=== PATIENT | male | born 1930 | race Caucasian/White ===

== ENCOUNTER 2017-01-15 19:47 | Emergency (ER) | payer MEDICARE, BC ==
--- OUTSIDE RECORDS SUMMARY | 2017-01-15 20:20 | XMS REPORT | Continuity of Care Document ---
:1930 Author Organization [employer] [place] [address] Care Team Providers Name Role Phone Unavailable Primary Care Provider Unavailable Source Comments This disclosure is being made pursuant to the CAPPTURE program and maynot contain all information available regarding this patient.[place] Active Allergies and Adverse Reactions Allergen Noted Date Severity Reactions Comments Adhesive Tape 03/30/2016 Low Rash Pcn 03/30/2016 Low Itching,Rash Sulfa Antibiotics 03/30/2016 Other (See Comments) Unknown reaction Current Medications Be aware that medications may not be up to date as of this document. Alwaysverify current medications with the patient. Prescription Sig. Disp. Refills Start Date End Date Status furosemide (LASIX) 20 MG Take 20 mg by Active tablet mouth daily. aspirin 81 MG tablet Take 81 mg by Active mouth daily. atenolol (TENORMIN) 25 Take 25 mg by Active MG tablet mouth daily. clopidogrel (PLAVIX) 75 Take 75 mg by Active MG tablet mouth daily. tamsulosin HCl (FLOMAX) Take 0.8 mg by Active 0.4 MG capsule mouth daily. vitamin D Take 1,000 Units Active (CHOLECALCIFEROL) 1000 by mouth daily. UNITS tablet acetaminophen (TYLENOL) Take 975 mg by Active 325 MG tablet mouth 3 (three) times daily. Cyanocobalamin (B-12) Take by mouth Active 1000 MCG CAPS every afternoon. ferrous sulfate 325 (65 Take 325 mg by Active FE) MG TABS tablet mouth every afternoon. DULoxetine (CYMBALTA) 60 Take 60 mg by Active MG capsule mouth every afternoon. atorvastatin (LIPITOR) Take 40 mg by Active 40 MG tablet mouth every evening. oxybutynin (DITROPAN) 5 Take 5 mg by Active MG tablet mouth every evening. nitroGLYCERIN Place 0.4 mg Active (NITROSTAT) 0.4 MG SL under the tongue tablet every 5 (five) minutes as needed for Chest pain. fluticasone (FLONASE) 50 2 sprays by Active MCG/ACT nasal spray Nasal route as needed for Rhinitis. to each nostril carbamide peroxide Place 2 drops Active (DEBROX) 6.5 % otic into both ears solution as needed. Menthol, Topical Apply Active Analgesic, (BIOFREEZE topically. EX) Multiple Take by mouth 2 Active Vitamins-Minerals (two) times (ICAPS) CAPS daily. HYDROcodone-acetaminophe Take 1 tablet by 30 tablet 0 04/13/2016 Active n (NORCO) 5-325 MG per mouth every 4 tablet (four) hours as needed. Active Problems Problem Noted Date Abdominal aortic aneurysm, without rupture (HCC) 04/12/2016 Iliac artery aneurysm, bilateral (HCC) 04/12/2016 Social History Tobacco Use Types Packs/Day Years Used Date Never Smoker Alcohol Use Drinks/Week oz/Week Comments Yes occasionally Last Filed Vital Signs Vital Sign Reading Time Taken Blood Pressure 112/56 04/13/2016 2:58 PM CDT Pulse 62 04/13/2016 2:58 PM CDT Temperature 36.8 C (98.2 F) 04/13/2016 2:58 PM CDT Respiratory Rate 16 04/13/2016 2:58 PM CDT Height 1.778 m (5' 10") 04/12/2016 9:00 AM CDT Weight 101.061 kg (222 lb 12.8 oz) 04/12/2016 9:00 AM CDT Body Mass Index 31.97 04/12/2016 9:00 AM CDT Oxygen Saturation 92% 04/13/2016 2:58 PM CDT Plan of Care Health Maintenance Due Date Last Done Comments Tetanus/Pertussis (1 - Tdap) 1950 Well Adult Visit 1981 Zoster Vaccine 60+ 1991 Pneumococcal Low/Medium Risk 65+ (1 of 2 - PCV13) 1996 Influenza Immunization (#1) 2016 Results from Last 3 Months Not on file Insurance Payer Benefit Plan / Group Subscriber ID Type Phone Address [employer] [place] [place] [id number] [phone] [id number] [place] [address] MEDICARE MEDICARE A AND B [id number] [phone] [address] [place] [address]
[2017-01-15] MEDS ORDERED: DOXYCYCLINE HYCLATE 100 MG TABLET PO ONE (20:25)
--- NOTE | 2017-01-15 20:25 | ERNOTE ---
Integumentary HPI - General Time Seen by Provider: 01/15/17 20:09 Source: patient, family - he is also obtained by the patient's spouse in the room who is very well informed and has excellent records Exam Limitations: no limitations - Immun/Allergies/Home Medications Immunizations: IMMUNIZATION HX Immunizations Up to Date Yes History of Influenza Vaccine Yes Hx Pneumococcal Vaccination Yes Allergies/Adverse Reactions: Allergies Allergy/AdvReac Type Severity Reaction Status Date / Time Penicillins Allergy Verified 01/15/17 19:58 Sulfa (Sulfonamide Allergy Verified 01/15/17 19:58 Antibiotics) Home Medications: HOME MEDICATIONS Atenolol [Tenormin] 25 mg PO DAILY 05/25/15 [Last Taken Unknown] Fluticasone Propionate [Flonase] 2 spray NS DAILY 05/25/15 [Last Taken Unknown] Nitroglycerin [Nitrostat] 0.4 mg SL Q5MIN PRN 05/25/15 [Last Taken Unknown] Acetaminophen [Tylenol] 3 tab PO TID 10/05/15 [Last Taken Unknown] Atorvastatin Calcium 40 mg PO ONCE 10/05/15 [Last Taken Unknown] Carbamide Peroxide [Ear Drops] 2 drop OT PRN 10/05/15 [Last Taken Unknown] Duloxetine HCl [Cymbalta] 60 mg PO DAILY 10/05/15 [Last Taken Unknown] Ferrous Sulfate 65 mg PO DAILY 10/05/15 [Last Taken Unknown] Menthol [Biofreeze] 1 appl TP BID PRN 10/05/15 [Last Taken Unknown] Tamsulosin HCl [Flomax] 2 tab PO HS 10/05/15 [Last Taken Unknown] Clopidogrel Bisulfate [Plavix] 75 mg PO DAILY #30 tablet 10/06/15 [Last Taken Unknown] Aspirin 81 mg PO DAILY 01/15/17 [Last Taken Unknown] Cholecalciferol (Vitamin D3) [Vitamin D3] 1,000 unit PO DAILY 01/15/17 [Last Taken Unknown] Cyanocobalamin (Vitamin B-12) [Vitamin B-12] 500 mcg PO DAILY 01/15/17 [Last Taken Unknown] Doxycycline Monohydrate 100 mg PO BID #20 tablet 01/15/17 [Last Taken Unknown] - History of Present Illness Narrative: This patient presents to the emergency room 24 hours after the attempted to take blood out of his right before meals area via phlebotomy. The area is red and warm and patient has a history of cellulitis in the past and he comes in for this issue. Review of Systems - Review of Systems Constitutional: Present: no symptoms reported EYE: Present: no symptoms reported ENT: Present: no symptoms reported Respiratory: Present: no symptoms reported Cardiology: Present: no symptoms reported Gastrointestinal/Abdominal: Present: no symptoms reported Genitourinary: Present: no symptoms reported Musculoskeletal: Present: no symptoms reported Skin: Present: See HPI - Patient's Past Medical History Patient History - Medical: Arthritis, GERD, Other Patient History - Cardiac/Respiratory: CVA/Stroke, Hypertension, Hyperlipidemia , Myocardial Infarction Patient History - Cancer: No Hx of Cancer Patient History - Surgical Procedures: Appendectomy, Back Surgery, Cataracts, Coronary Bypass Surgery, Cardiac stent, Other Patient History - Other: None - Family History Father Family History - Medical: Family History - Cardiac/Respiratory: Myocardial Infarction Mother Family History - Medical: , Dementia - Social History Living Situations: home Abuse History: No History of abuse Psych History: No pertinent hx Alcohol Use: none Drug Use: none - Immunizations Immunizations Up to Date: Yes Hx Pneumococcal Vaccination: Yes History of Influenza Vaccine: Yes Physical Exam - Physical Exam General Appearance: Present: wd/wn, alert, no apparent distress Head Exam: Present: normal inspection Respiratory: Present: no respiratory distress, normal breath sounds, no accessory muscle use, chest nontender, lungs clear Cardiovascular/Chest: Present: regular rate, rhythm, no murmur Gastrointestinal/Abdominal: Present: normal bowel sounds, nontender, nondistended, soft, no organomegaly Skin Exam: Present: other - there is an area which is circular on the right antecubital region which is read slightly raised warm to the touch and slightly tender no puncture wound is seen the area is approximately 12 cm in greater diameter ED Progress - Vital Signs Patient's Vital Signs:: I have reviewed the patient's vital signs. Vital Signs: Vital Signs 01/15/17 19:52 Temperature 36.4 C L Pulse Rate 68 Respiratory 18 Rate Blood Pressure 140/71 O2 Sat by Pulse 93 Oximetry - Progress/Reassessment Chief Complaint: Cellulitis Plan - Plan Plan: This patient clearly has a cellulitis as he has been the past. He we will treat him with doxycycline 100 mg by mouth twice a day for 10 days and have him follow-up with his primary care doctor Departure Clinical Impression: Cellulitis of forearm, right - Departure Disposition: Home self-care Condition: Good Instructions: Cellulitis, Adult, [id number] Additional Instructions: These go see Dr. Tyson if the redness is outside of the delineated area in 2 days. You could always return to the emergency room as well Referrals: Nathaniel Tyson MD [Primary Care Provider] - Prescriptions: Doxycycline Monohydrate 100 mg PO BID #20 tablet
[2017-01-15 20:31] VITALS: BP 134/65
[2017-01-15] MEDS ORDERED: DOXYCYCLINE HYCLATE 100 MG TABLET ONE (20:34)
== END 2017-01-15 20:40 | disposition home or self-care (01) ==
LOC: ER 19:47
DX: L03.113 Cellulitis of right upper limb (principal); I10 Essential (primary) hypertension; Z95.5 Presence of coronary angioplasty implant and graft

== ENCOUNTER 2020-07-18 13:50 | Inpatient (IN) ==
[2020-07-18] MEDS ORDERED: NORMAL SALINE 1,000 ML IV ONE (14:20)
[2020-07-18 14:55] LABS: Hematocrit 41.2 % (42.0-52.0); Hemoglobin 13.6 gm/dL (13.5-18.0); Mean Corpuscular Hemoglobin 35.3 pg (27-31); Mean Platelet Volume 9.2 fl (8-11.3); Neutrophil # 4.7 K/mm3 (1.3-6.0); Neutrophil % 80.4 % (42-75.0); Platelet Count 192 K/mm3 (150-450); Red Blood Count 3.85 M/mm3 (4.7-6.0); Red Cell Distribution Width 12.9 % (11.5-14.0); White Blood Count 5.9 K/mm3 (4.0-10.5)
[2020-07-18 15:11] LABS: ALT 13 U/L (19-67); AST 17 U/L (0-48); Albumin * 3.4 gm/dl (3.4-5.0); Alkaline Phosphatase * 81 U/L (50-170); Bilirubin, Total 0.3 mg/dL (0.0-1.1); Blood Urea Nitrogen 22 mg/dL (6-23); Ca. Corrected For Albumin 8.9 mg/dL (8.4-10.2); Calcium * 8.7 mg/dL (7.9-10.9); Carbon Dioxide 27.4 mmol/L (24-32.6); Chloride 105 mmol/L (97-106); Glucose * 103 mg/dL (70-110); Potassium 4.4 mmol/L (3.4-4.6); Sodium 141 mmol/L (132-142); Total Protein 6.8 gm/dL (6.2-8.2)
[2020-07-18 15:12] LABS: Troponin I Less than 0.017 ng/mL (0.00-0.10)
[2020-07-18 16:28] LABS: Urine Bilirubin Negative (NEGATIVE); Urine Blood Negative /ul (NEGATIVE); Urine Ketone Negative (NEGATIVE); Urine Nitrite Negative (NEGATIVE); Urine Protein Negative (NEGATIVE); Urine Specific Gravity 1.025 SP.GR. (1.005-1.030); Urine Urobilinogen Normal (NORMAL)
[2020-07-18 16:41] LABS: Urine Appearance Clear (CLEAR); Urine Bacteria TRACE; Urine Color Yellow; Urine RBC TRACE /hpf (0-5); Urine WBC TRACE /hpf (0-5)
[2020-07-18] MEDS ORDERED: LABETALOL HCL 5 MG/ML VIAL IV ONE (17:34)
--- NOTE | 2020-07-18 17:41 | ERNOTE ---
Medical Problem HPI - Narrative Date of Service: 07/18/20 - General Chief Complaint: General Assessment Time Seen by Provider: 07/18/20 14:07 Source: patient Exam Limitations: no limitations - Immun/Allergies/Home Medications Immunizations: IMMUNIZATION HX Immunizations Up to Date Yes History of Influenza Vaccine Yes Hx Pneumococcal Vaccination Yes Allergies/Adverse Reactions: Allergies adhesive tape Allergy (Verified 07/18/20 14:02) blisters Penicillins Allergy (Verified 07/18/20 14:02) Sulfa (Sulfonamide Antibiotics) Allergy (Verified 07/18/20 14:02) Home Medications: HOME MEDICATIONS Atenolol [Tenormin] 25 mg PO DAILY 05/25/15 [Last Taken Unknown] Fluticasone Propionate [Flonase] 2 spray NS DAILY 05/25/15 [Last Taken Unknown] Nitroglycerin [Nitrostat] 0.4 mg SUBLINGUAL Q5MIN PRN 05/25/15 [Last Taken Unknown] Acetaminophen [Tylenol] 3 tab PO TID 10/05/15 [Last Taken Unknown] Carbamide Peroxide [Ear Drops] 2 drp OTIC (EAR) PRN 10/05/15 [Last Taken Unknown] Menthol [Biofreeze] 1 appl TOPICAL BID PRN 10/05/15 [Last Taken Unknown] Tamsulosin HCl [Flomax] 2 tab PO DAILY 10/05/15 [Last Taken Unknown] Cholecalciferol (Vitamin D3) [Vitamin D3] 1,000 unit PO DAILY 01/15/17 [Last Taken Unknown] diclofenac sodium 1 % topical gel 2 g TP QID 05/30/18 [Last Taken Unknown] [place] Oil/[place]-3 Fatty Acids [Fish Oil] 1,200 mg PO DAILY 11/24/18 [Last Taken Unknown] duloxetine 30 mg capsule,delayed release 90 mg PO DAILY cap 02/20/19 [Last Taken Unknown] aspirin 81 mg tablet,delayed release 81 mg PO DAILY 11/19/19 [Last Taken Unknown] atorvastatin 40 mg tablet 40 mg PO DAILY tab 11/19/19 [Last Taken Unknown] carboxymethylcellulose sodium 0.5 % eye drops 1 drp OP BID PRN 11/19/19 [Last Taken Unknown] docusate sodium 100 mg capsule 100 mg PO TID cap 11/19/19 [Last Taken Unknown] sennosides 8.6 mg tablet 17.2 mg PO HS tab 11/19/19 [Last Taken Unknown] mxsB-[id number]-I-[id number]-tmcevt-jsqqkev-min 3,300 unit-5 mg-200mg-75 unit tablet ER 1 tab PO BID tab 11/19/19 [Last Taken Unknown] calcitonin (salmon) 200 unit/actuation nasal spray 1 spray INTRANASAL (ALT) DAILY #3.7 ml 12/13/19 [Last Taken Unknown] - History of Present History Narrative: Patient presents to the ED via EMS. He presents to the ED for trouble feeding himself and trouble walking today. This has been present all day since awakening. His relates Sx yesterday but after talking to his daughter by phone it sounds more like this started this morning. He was unable to get the coffee cup to his mouth with his right hand and can no longer get around like no rmal, feels like his right leg may be more weak than normal. No CP or SOB. No headache. Timing: constant Severity: moderate Modifying Factors - (Improves): Present: other - nothing Modifying Factors - (Worsens): Present: other - nothing Review of Systems - Review of Systems Constitutional: Absent: fever EYE: Absent: vision changes ENT: Present: no symptoms reported Respiratory: Absent: shortness of breath Cardiology: Absent: chest pain Gastrointestinal/Abdominal: Absent: abdominal pain Genitourinary: Absent: dysuria Neurological: Present: See HPI All Other Systems: All systems neg except as marked Medical History (Last Reviewed 07/18/20 @ 18:06 by Ramin Foster MD) Peripheral neuropathy (Chronic) Myocardial infarct (Acute) Hypertension (Chronic) Hyperlipidemia (Chronic) Head injury (Acute) GERD (gastroesophageal reflux disease) (Chronic) Depression (Chronic) Chronic low back pain (Chronic) CHF (congestive heart failure) (Chronic) AAA (abdominal aortic aneurysm) (Chronic) CVA (cerebral vascular accident) (Chronic) Coronary artery disease (Chronic) Macular degeneration Surgical History: Surgical History (Last Reviewed 07/18/20 @ 18:06 by Ramin Foster MD) H/O carotid endarterectomy Onset Date: Unknown H/O colonoscopy H/O laminectomy Onset Date: Unknown H/O transurethral resection of prostate Onset Date: Unknown History of AAA (abdominal aortic aneurysm) repair Onset Date: Unknown History of appendectomy Onset Date: Unknown Hx of CABG Onset Date: Unknown Hx of cataract surgery Onset Date: Unknown cardiac stent Onset Date: Unknown Family History: Family History (Last Reviewed 07/18/20 @ 18:06 by Ramin Foster MD) Father Heart disease Mother Dementia Social History: (Last Reviewed 07/18/20 @ 18:06 by Ramin Foster MD) Social History: Marital status: number of children: 5 current occupational status: retired current occupation: [employer] Highest level of school completed/degree received: high school graduate Service: Yes branch: [employer] Tobacco: Smoking Status: Never smoker Alcohol: alcohol intake: current Alcohol type: beer alcohol intake frequency: holiday/special occasion Substance Use: substance use type: does not use Dietary Habits: caffeine: Yes Type: coffee Physical Exam - Physical Exam General Appearance: Present: alert, no apparent distress Head Exam: Present: normal inspection, no evidence of injury Eye Exam: Normal inspection: bilateral, PERRL: bilateral Ears, Nose, Throat: Present: normal ENT inspection Neck: Present: normal inspection Respiratory: Present: no respiratory distress, normal breath sounds, no accessory muscle use, lungs clear Cardiovascular/Chest: Present: regular rate, rhythm Gastrointestinal/Abdominal: Present: normal bowel sounds, nontender, nondistended, soft Back Exam: Absent: CVA tenderness (R), CVA tenderness (L) Extremity Exam: Present: normal range of motion Neurological Exam: Present: alert, contract programmer II-XII nml as tested, other - No pronator drift, finger to nose wnl, full LE strngth, no clear acute deficits noted at this time. Skin Exam: Present: normal color, warm/dry Progress - Results and Orders Patient's Lab Results:: I have reviewed the patient's lab results. - Vital Signs Patient's Vital Signs:: I have reviewed the patient's vital signs. Vital Signs: Vital Signs 07/18/20 13:50 07/18/20 14:48 07/18/20 17:05 Temperature 36.6 C Pulse Rate 58 L 59 L 58 L Respiratory Rate 16 18 15 Blood Pressure 112/52 179/80 H O2 Sat by Pulse Oximetry 99 100 100 - EKG EKG #1 EKG read: Interp. by me EKG Comments: Sinus bradycardia rate 58. Non-specific ST/T wave changes, no STEMI noted. - X-Ray X-Ray #1 X-Ray: chest Interpretation: Interp. by me X-ray Comments: I personally reviewed CXR image as well as official radiology report. - CT/Ultrasound CT/Ultrasound Narrative: I reviewed the official radiology report for CT head. - Progress/Reassessment Chief Complaint: General Assessment Progress Note-Subjective: 07/18/20 18:09 cannot care for patient at home in this state. I'm not sure that he has had a stroke but there is subjective right sided weakness that is out of any therapeutic window. A small stroke could be the etiology though. He will need further evaluation. I spoke with Dr Fitch who will admit for further eval and management. He is too unstable to safely go home at this point. Departure Clinical Impression: Weakness, Gait instability, Stroke-like symptoms - Departure Disposition: Still a patient Condition: Fair
[2020-07-18] MEDS ORDERED: NITROGLYCERIN 0.4 MG/TAB BTL SL PRN (19:45)
[2020-07-18] MEDS ORDERED: CARBAMIDE PEROXIDE 150 DROP BTL EACH EAR SCH (19:45)
[2020-07-18] MEDS ORDERED: ACETAMINOPHEN 500 MG TABLET PO PRN (19:45)
--- NOTE | 2020-07-18 20:17 | HP ---
Chief Complaint - Chief Complaint Date of Service: 07/18/20 Time of Service: 20:02 Chief Complaint: I have had worsening right-sided weakness in my arms and legs, and my legs collapsed this morning. History of Present Illness: 89-year-old male with past medical history of old CVA, hypertension, CAD, hyperlipidemia, AAA, CHF, peripheral vascular disease, was evaluated in the ER after he was brought in by EMS for evaluation of worsening right-sided hemiparesis and inability to walk that started since yesterday. Patient reports he had a stroke several years ago that left him with right-sided weakness but after completing PT he was able to walk on his own and is pretty independent. The patient lives with his who is also elderly and she reported that since yesterday the patient's hemiparesis has been getting worse. By this morning the patient was unable to walk and his legs gave out from under him causing him to slightly fall. The patient was unable to feed himself due to inability to picker and sorter load and unload cup of coffee to break his lips so the had to feed him. His symptoms gradually worsened so his home health nurse after evaluating him recommended taking the patient to the ER to be evaluated for new stroke. Medical History (Last Reviewed 07/18/20 @ 18:06 by Ramin Foster MD) Peripheral neuropathy (Chronic) Myocardial infarct (Acute) Hypertension (Chronic) Hyperlipidemia (Chronic) Head injury (Acute) GERD (gastroesophageal reflux disease) (Chronic) Depression (Chronic) Chronic low back pain (Chronic) CHF (congestive heart failure) (Chronic) AAA (abdominal aortic aneurysm) (Chronic) CVA (cerebral vascular accident) (Chronic) Coronary artery disease (Chronic) Macular degeneration Surgical History: Surgical History (Last Reviewed 07/18/20 @ 18:06 by Ramin Foster MD) H/O carotid endarterectomy Onset Date: Unknown H/O colonoscopy H/O laminectomy Onset Date: Unknown H/O transurethral resection of prostate Onset Date: Unknown History of AAA (abdominal aortic aneurysm) repair Onset Date: Unknown History of appendectomy Onset Date: Unknown Hx of CABG Onset Date: Unknown Hx of cataract surgery Onset Date: Unknown cardiac stent Onset Date: Unknown Family History: Family History (Last Reviewed 07/18/20 @ 18:06 by Ramin Foster MD) Father Heart disease Mother Dementia Social History: (Last Reviewed 07/18/20 @ 18:06 by Ramin Foster MD) Social History: Marital status: number of children: 5 current occupational status: retired current occupation: [employer] Highest level of school completed/degree received: high school graduate Service: Yes branch: [employer] Tobacco: Smoking Status: Never smoker Alcohol: alcohol intake: current Alcohol type: beer alcohol intake frequency: holiday/special occasion Substance Use: substance use type: does not use Dietary Habits: caffeine: Yes Type: coffee Peds Patient Hx - Developmental: No Pertinent Hx Peds Patient Hx - Medical: No Pertinent Hx Peds Patient Hx - Cardiac/Respiratory: No Pertinent Hx Peds Patient Hx - Surgical: No Surgical History Patient History - Cancer: No Hx of Cancer Review Of Systems (GEN) - Review of Systems Generalized/Overall Review: Present: Weakness EENTM: Present: No Symptoms Reported Respiratory: Present: No Symptoms Reported Cardiac: Present: No Symptoms Reported Abdominal: Present: No Symptoms Reported Genitourinary: Present: No Symptoms Reported Musculoskeletal: Present: No Symptoms Reported Neurological: Present: Weakness - Right-sided weakness, Pre-existing Deficit Skin: Present: No Symptoms Reported Endocrine: Present: No Symptoms Reported Immunizations: IMMUNIZATION HX Immunizations Up to Date Yes History of Influenza Vaccine Yes Hx Pneumococcal Vaccination Yes Allergies/Adverse Reactions: Allergies Allergy/AdvReac Type Severity Reaction Status Date / Time adhesive tape Allergy blisters Verified 07/18/20 14:02 Penicillins Allergy Verified 07/18/20 14:02 Sulfa (Sulfonamide Allergy Verified 07/18/20 14:02 Antibiotics) Home Medications: HOME MEDICATIONS Atenolol [Tenormin] 25 mg PO DAILY 05/25/15 [Last Taken Unknown] Fluticasone Propionate [Flonase] 2 spray NS DAILY 05/25/15 [Last Taken Unknown] Nitroglycerin [Nitrostat] 0.4 mg SUBLINGUAL Q5MIN PRN 05/25/15 [Last Taken Unknown] Acetaminophen [Tylenol] 3 tab PO TID 10/05/15 [Last Taken Unknown] Carbamide Peroxide [Ear Drops] 2 drp OTIC (EAR) PRN 10/05/15 [Last Taken Unknown] Menthol [Biofreeze] 1 appl TOPICAL BID PRN 10/05/15 [Last Taken Unknown] Tamsulosin HCl [Flomax] 2 tab PO DAILY 04/03/16 [Last Taken Unknown] Cholecalciferol (Vitamin D3) [Vitamin D3] 1,000 unit PO DAILY 01/15/17 [Last Taken Unknown] diclofenac sodium 1 % topical gel 2 g TP QID 05/30/18 [Last Taken Unknown] [place] Oil/Atkins-3 Fatty Acids [Fish Oil] 1,200 mg PO DAILY 11/24/18 [Last Taken Unknown] duloxetine 30 mg capsule,delayed release 90 mg PO DAILY cap 02/20/19 [Last Taken Unknown] aspirin 81 mg tablet,delayed release 81 mg PO DAILY 11/19/19 [Last Taken Unknown] atorvastatin 40 mg tablet 40 mg PO DAILY tab 11/19/19 [Last Taken Unknown] carboxymethylcellulose sodium 0.5 % eye drops 1 drp OP BID PRN 11/19/19 [Last Taken Unknown] docusate sodium 100 mg capsule 100 mg PO TID cap 11/19/19 [Last Taken Unknown] sennosides 8.6 mg tablet 17.2 mg PO HS tab 11/19/19 [Last Taken Unknown] [id number]-[id number]-[id number]-min 3,300 unit-5 mg-200mg-75 unit tablet ER 1 tab PO BID tab 11/19/19 [Last Taken Unknown] calcitonin (salmon) 200 unit/actuation nasal spray 1 spray INTRANASAL (ALT) DAILY #3.7 ml 12/13/19 [Last Taken Unknown] Exam - Exam Vital Signs: Vital Signs - Last Taken Temp 36.9 C 07/18/20 18:49 Pulse 59 L 07/18/20 18:49 Resp 18 07/18/20 18:49 BP 179/80 H 07/18/20 18:49 Pulse Ox 97 07/18/20 18:49 Constitutional: Present: Alert, Oriented x3, Cooperative, Well developed, Well nourished, No distress, Elderly ENT Exam: Present: normal ENT inspection, hearing grossly normal Eye Exam: bilateral eye: normal inspection, PERRL, EOMI Neck: Present: non-tender, full range of motion, supple, normal inspection, trachea midline Back Exam: Present: normal inspection, no CVA tenderness, no vertebral tenderness Breasts: Present: Exam deferred Respiratory: Present: chest non-tender, lungs clear, normal breath sounds, no respiratory distress, no accessory muscle use Cardiovascular/Chest: Present: normal peripheral pulses, regular rate, rhythm, no chest tenderness, no edema, no gallop, no JVD, no rub, systolic murmur Peripheral Pulses: dorsalis-pedis (R): 2+, dorsalis-pedis (L): 2+ Abdomen: Present: Normal bowel sounds, soft, nontender, nondistended, no rebound tenderness, no hepatospenomegaly, no masses, obese /Rectal: Present: Exam deferred Extremity: Present: normal range of motion, non-tender, normal inspection, no pedal edema, no calf tenderness, normal capillary refill, pelvis stable Skin Exam: Present: normal color, warm/dry, no cyanosis Lymphatic: Present: no adenopathy Neurologic: Present: normal cerebellar test, alert, normal mood/affect, oriented x 3, abnormal supervisor compounding and finishing II-XII, motor weakness - Decreased strength in upper and lower extremities Appearance: Present: appropriate appearance, appropriate insight, neat, no memory impairment Eye contact: Present: cooperative, good eye contact, normal speech Thoughts: Present: normal thought pattern, no apparent hallucination Diagnostic Studies: Abnormal Lab Results 07/18/20 07/18/20 Range/Units 14:45 14:45 RBC 3.85 L (4.7-6.0) M/mm3 Hct 41.2 L (42.0-52.0) % MCV 107.0 H (78-100) fl MCH 35.3 H (27-31) pg Neutrophils % 80.4 H (42-75.0) % Lymphocytes % 11.1 L (20-51) % Lymphocytes # 0.65 L (1.5-3.5) k/mm3 BUN/Creatinine Ratio 25.0 H (9.0-21.6) ALT 13 L (19-67) U/L Laboratory Results WBC 5.9 K/mm3 (4.0-10.5) 07/18/20 14:45 RBC 3.85 M/mm3 (4.7-6.0) L 07/18/20 14:45 Hgb 13.6 gm/dL (13.5-18.0) 07/18/20 14:45 Hct 41.2 % (42.0-52.0) L 07/18/20 14:45 MCV 107.0 fl (78-100) H 07/18/20 14:45 MCH 35.3 pg (27-31) H 07/18/20 14:45 MCHC 33.0 g/dl (32-36) 07/18/20 14:45 RDW 12.9 % (11.5-14.0) 07/18/20 14:45 Plt Count 192 K/mm3 (150-450) 07/18/20 14:45 MPV 9.2 fl (8-11.3) 07/18/20 14:45 Immature Gran % (Auto) 0.30 % (0.001-0.429) 07/18/20 14:45 Immature Gran # (Auto) 0.02 K/mm3 (0.000-0.0310) 07/18/20 14:45 Neutrophils % 80.4 % (42-75.0) H 07/18/20 14:45 Lymphocytes % 11.1 % (20-51) L 07/18/20 14:45 Monocytes % 6.3 % (0.0-9) 07/18/20 14:45 Eosinophils % 1.2 % (0.0-3.0) 07/18/20 14:45 Basophils % 0.7 % (0.0-1.0) 07/18/20 14:45 Nucleated RBC % 0.0 k/mm3 (0-1) 07/18/20 14:45 Neutrophils # 4.7 K/mm3 (1.3-6.0) 07/18/20 14:45 Lymphocytes # 0.65 k/mm3 (1.5-3.5) L 07/18/20 14:45 Monocytes # 0.4 k/mm3 (0.0-1.0) 07/18/20 14:45 Eosinophils # 0.1 k/mm3 (0.0-0.7) 07/18/20 14:45 Absolute Basophils 0.0 k/mm3 (0.0-0.1) 07/18/20 14:45 Sodium 141 mmol/L (132-142) 07/18/20 14:45 Plasma Sodium 141 mmol/L (130-142) 07/18/20 14:45 Potassium 4.4 mmol/L (3.4-4.6) 07/18/20 14:45 Chloride 105 mmol/L (97-106) 07/18/20 14:45 Carbon Dioxide 27.4 mmol/L (24-32.6) 07/18/20 14:45 Anion Gap 13.0 mmol/L (6.8-13.8) 07/18/20 14:45 BUN 22 mg/dL (6-23) 07/18/20 14:45 Creatinine 0.88 mg/dL (0.4-1.4) 07/18/20 14:45 Est GFR (Non-Af Amer) 87 mL/min (60-130) 07/18/20 14:45 BUN/Creatinine Ratio 25.0 (9.0-21.6) H 07/18/20 14:45 Random Glucose 103 mg/dL (70-110) 07/18/20 14:45 Lactic Acid, Venous 1.2 mmol/L (0.4-2.0) 07/18/20 14:45 Calcium 8.7 mg/dL (7.9-10.9) 07/18/20 14:45 Calcium Adj for Albumin 8.9 mg/dL (8.4-10.2) 07/18/20 14:45 Total Bilirubin 0.3 mg/dL (0.0-1.1) 07/18/20 14:45 AST 17 U/L (0-48) 07/18/20 14:45 ALT 13 U/L (19-67) L 07/18/20 14:45 Alkaline Phosphatase 81 U/L (50-170) 07/18/20 14:45 Troponin I Less than 0.017 ng/mL (0.00-0.10) 07/18/20 14:45 Total Protein 6.8 gm/dL (6.2-8.2) 07/18/20 14:45 Albumin 3.4 gm/dl (3.4-5.0) 07/18/20 14:45 Urine Color Yellow 07/18/20 16:15 Urine Appearance Clear (CLEAR) 07/18/20 16:15 Urine pH 6.0 pH (5.0-7.0) 07/18/20 16:15 Ur Specific [place] 1.025 SP.GR. (1.005-1.030) 07/18/20 16:15 Urine Protein Negative mg/dL (NEGATIVE) 07/18/20 16:15 Urine Glucose (UA) Negative mg/dL (NEGATIVE) 07/18/20 16:15 Urine Ketones Negative mg/dL (NEGATIVE) 07/18/20 16:15 Urine Blood Negative /ul (NEGATIVE) 07/18/20 16:15 Urine Nitrate Negative (NEGATIVE) 07/18/20 16:15 Urine Bilirubin Negative mg/dl (NEGATIVE) 07/18/20 16:15 Urine Urobilinogen Normal EU/dl (NORMAL) 07/18/20 16:15 Ur Leukocyte Esterase Negative /ul (NEGATIVE) 07/18/20 16:15 Urine RBC Trace /hpf (0-5) 07/18/20 16:15 Urine WBC Trace /hpf (0-5) 07/18/20 16:15 Ur Epithelial Cells 0-5 /hpf (0-5) 07/18/20 16:15 Urine Bacteria Trace (NONE) 07/18/20 16:15 Urine Culture Comments No culture indicated 07/18/20 16:15 SARS-CoV-2 (PCR) Not detected (NotDetected) 07/18/20 14:28 Assessment/Plan - Narrative Narrative: Patient was evaluated medical chart was reviewed and decision to admit for observation of a possible new CVA was made. Head CT was negative for any acute findings but a new CVA could not be ruled out so we will keep the patient on telemetry overnight and send him for brain MRI to rule out a new ischemic event. Since cerebral hemorrhage was ruled out we will start the patient on aspirin and Lovenox for anticoagulation per guidelines and keep him on a pvc monitor for close monitoring. - Assessment/Plan (1) Suspected cerebrovascular accident (CVA) Problem: Acute (2) Weakness Problem: Acute (3) Gait instability Problem: Acute (4) Stroke-like symptoms Problem: Acute (5) Peripheral neuropathy Problem: Chronic (6) Hypertension Problem: Chronic Qualifiers: (7) Hyperlipidemia Problem: Chronic Qualifiers: (8) CHF (congestive heart failure) Problem: Chronic
[2020-07-18] MEDS ORDERED: GLYCERIN/PROPYLENE GLYCOL 150 DROP BTL EACHEYE PRN (20:22)
[2020-07-18] MEDS ORDERED: amLODIPine BESYLATE 5 MG TABLET PO ONE (20:22)
[2020-07-18] MEDS: ENOXAPARIN SODIUM 40 MG/0.4 ML SYRG SC SCH (20:32)
[2020-07-18] MEDS: FAMOTIDINE 20 MG TABLET PO SCH (20:33)
[2020-07-18] MEDS: DICLOFENAC SODIUM 100 APPL TUBE TP SCH (20:33)
[2020-07-18] MEDS: SENNOSIDES 8.6 MG TABLET PO SCH (20:33)
[2020-07-18] MEDS: ASPIRIN 325 MG TABLET.DR PO SCH (20:33)
[2020-07-18] MEDS: BETA-CAROTENE(A) W-C , E/MIN 1 TAB TABLET PO SCH (20:33)
[2020-07-19] MEDS ORDERED: ASPIRIN 81 MG TABLET.DR PO SCH (09:00)
[2020-07-19] MEDS: DULoxetine HCL 30 MG CAPSULE.SA PO SCH (09:24)
[2020-07-19] MEDS: BETA-CAROTENE(A) W-C , E/MIN 1 TAB TABLET PO SCH ×2 (09:24→20:28)
[2020-07-19] MEDS: ATENOLOL 25 MG TABLET PO SCH (09:24)
[2020-07-19] MEDS: ROSUVASTATIN CALCIUM 20 MG TABLET PO SCH (09:24)
[2020-07-19] MEDS: FAMOTIDINE 20 MG TABLET PO SCH ×2 (09:24→20:29)
[2020-07-19] MEDS: DICLOFENAC SODIUM 100 APPL TUBE TP SCH ×4 (09:24→20:28)
[2020-07-19] MEDS: CHOLECALCIFEROL 1,000 UNIT CAPSULE PO SCH (09:24)
[2020-07-19] MEDS: DOCUSATE SODIUM 100 MG CAPSULE PO SCH ×3 (09:24→17:23)
[2020-07-19] MEDS: ASPIRIN 325 MG TABLET.DR PO SCH (09:24)
[2020-07-19] MEDS: OMEGA-3 FATTY ACIDS 1 CAP CAPSULE PO SCH (09:24)
[2020-07-19] MEDS: TAMSULOSIN HCL 0.4 MG CAP.SR.24H PO SCH (09:24)
[2020-07-19] MEDS: CALCITONIN,SALMON,SYNTHETIC 30 SPRAY BTL NS SCH (09:25)
[2020-07-19] MEDS: FLUTICASONE PROPIONATE 120 SPRAY INHALER NS SCH (09:25)
--- NOTE | 2020-07-19 11:33 | PN ---
Subjective - Date and Time Seen Date: 07/19/20 Time: 11:20 Subjective Narrative: I feel okay but weak in my legs and right arm. Objective Objective Narrative: 89-year-old male admitted for CVA and worsening right hemiparesis was evaluated bedside this morning and was found to be afebrile and in no acute distress. Patient continues to show right-sided hemiparesis with a right sided facial droop that is worse than his previous. Patient had a stroke back in 2016 that left him with multiple motor deficits that over the past several weeks have been gradually getting worse. 2 days ago it got to the point where the patient could not ambulate or feed himself making it difficult for his to care for him. Brain MRI done this morning confirmed recurrent multiple small strokes in the same distribution as previous which is the MCA, however the radiologist was unable to determine if this is an acute or subacute stroke but given the presentation of the patient's symptoms this might be subacute more than acute. The patient started physical therapy this morning and they reported weakness in both lower extremity that is worse on the right making ambulation difficult and weakness in the right upper extremity. Recommendation was for ongoing physical therapy while here in the hospital and to continue after discharge possibly to rehab facility. Given these findings the patient was made inpatient for treat ment here in the hospital and OT was also added to address his motor deficits. I also added Plavix to his aspirin given the fact that this is not his for stroke and he is at high risk for recurrence of additional strokes. His blood pressure has also been an issue however we are keeping permissive hypertension in mind given the presentation of his new stroke, but we will add an antihypertensive for better control of his blood pressure. We will keep the patient on telemetry monitoring and continue to watch him closely. - Review of Systems Generalized/Overall Review: Reports: Weakness EENTM: Reports: No Symptoms Reported Respiratory: Reports: No Symptoms Reported Cardiac: Reports: No Symptoms Reported Abdominal: Reports: No Symptoms Reported Genitourinary Symptoms: Reports: No Symptoms Reported Musculoskeletal Complaints: Reports: No Symptoms Reported Neurological: Reports: Pre-existing Deficit, Other - Right hemiparesis Skin: Reports: No Symptoms Reported Endocrine: Reports: No Symptoms Reported - Vitals Vitals: Last Vital Signs Temp 36.4 C 07/19/20 10:59 Pulse 63 07/19/20 10:59 Resp 16 07/19/20 10:59 BP 176/77 H 07/19/20 10:59 Pulse Ox 96 07/19/20 10:59 - Abnormal Lab Findings Abnormal Lab Findings: Abnormal Lab Results 07/18/20 07/18/20 Range/Units 14:45 14:45 RBC 3.85 L (4.7-6.0) M/mm3 Hct 41.2 L (42.0-52.0) % MCV 107.0 H (78-100) fl MCH 35.3 H (27-31) pg Neutrophils % 80.4 H (42-75.0) % Lymphocytes % 11.1 L (20-51) % Lymphocytes # 0.65 L (1.5-3.5) k/mm3 BUN/Creatinine Ratio 25.0 H (9.0-21.6) ALT 13 L (19-67) U/L - Exam Constitutional: Present: Alert, Oriented x3, Cooperative, Well developed, Well nourished, No distress, Elderly ENT Exam: Present: normal ENT inspection, hearing grossly normal Neck: Present: non-tender, full range of motion, supple, normal inspection, trachea midline Breasts: Present: Exam deferred Respiratory: Present: chest non-tender, lungs clear, normal breath sounds, no respiratory distress, no accessory muscle use Cardiovascular/Chest: Present: normal peripheral pulses, regular rate, rhythm, no chest tenderness, no edema, no gallop, no JVD, no murmur, no rub Abdomen: Present: Normal bowel sounds, soft, nontender, nondistended, no rebound tenderness, no hepatospenomegaly, no masses /Rectal: Present: Exam deferred Extremity: Present: normal range of motion, non-tender, normal inspection, no pedal edema, no calf tenderness, normal capillary refill, pelvis stable Skin Exam: Present: normal color, no cyanosis Lymphatic: Present: no adenopathy Neurologic: Present: alert, normal mood/affect, oriented x 3, motor weakness Appearance: Present: appropriate appearance, appropriate insight, neat, no memory impairment Eye contact: Present: cooperative, good eye contact, normal speech Thoughts: Present: normal thought pattern, no apparent hallucination Assessment/Plan Plan Narrative: We will keep the patient for an additional day and treat him with Plavix and asp irin and continue rehab with physical therapy and OT. Up to now the patient has clear speech and is able to swallow without any issues so I do not see the need currently for evaluation with a speech therapist, but I will continue to watch this. - Problems/Diagnosis (1) Suspected cerebrovascular accident (CVA) Problem: Acute (2) Weakness Problem: Acute (3) Gait instability Problem: Acute (4) Stroke-like symptoms Problem: Acute (5) Peripheral neuropathy Problem: Chronic (6) Hypertension Problem: Chronic Qualifiers: (7) Hyperlipidemia Problem: Chronic Qualifiers: (8) CHF (congestive heart failure) Problem: Chronic (9) Hemiparesis affecting right side as late effect of cerebrovascular accident Problem: Acute (10) CVA (cerebral vascular accident) Problem: Acute Qualifiers: Precerebral and cerebral artery: middle cerebral artery
[2020-07-19] MEDS: amLODIPine BESYLATE 5 MG TABLET PO SCH (11:46)
[2020-07-19] MEDS: CLOPIDOGREL BISULFATE 75 MG TABLET PO SCH (11:46)
[2020-07-19] MEDS: ENOXAPARIN SODIUM 40 MG/0.4 ML SYRG SC SCH (20:28)
[2020-07-19] MEDS: SENNOSIDES 8.6 MG TABLET PO SCH (20:29)
[2020-07-20] MEDS: FAMOTIDINE 20 MG TABLET PO SCH ×2 (08:17→20:03)
[2020-07-20] MEDS: ASPIRIN 325 MG TABLET.DR PO SCH (08:17)
[2020-07-20] MEDS: ATENOLOL 25 MG TABLET PO SCH (08:18)
[2020-07-20] MEDS: DULoxetine HCL 30 MG CAPSULE.SA PO SCH (08:18)
[2020-07-20] MEDS: TAMSULOSIN HCL 0.4 MG CAP.SR.24H PO SCH (08:18)
[2020-07-20] MEDS: CHOLECALCIFEROL 1,000 UNIT CAPSULE PO SCH (08:19)
[2020-07-20] MEDS: BETA-CAROTENE(A) W-C , E/MIN 1 TAB TABLET PO SCH ×2 (08:19→20:03)
[2020-07-20] MEDS: DOCUSATE SODIUM 100 MG CAPSULE PO SCH ×3 (08:19→17:12)
[2020-07-20] MEDS: OMEGA-3 FATTY ACIDS 1 CAP CAPSULE PO SCH (08:19)
[2020-07-20] MEDS: amLODIPine BESYLATE 5 MG TABLET PO SCH (08:19)
[2020-07-20] MEDS: ROSUVASTATIN CALCIUM 20 MG TABLET PO SCH (08:20)
[2020-07-20] MEDS: CLOPIDOGREL BISULFATE 75 MG TABLET PO SCH (08:20)
[2020-07-20] MEDS: FLUTICASONE PROPIONATE 120 SPRAY INHALER NS SCH (08:21)
[2020-07-20] MEDS: DICLOFENAC SODIUM 100 APPL TUBE TP SCH ×4 (08:21→20:02)
[2020-07-20] MEDS: CALCITONIN,SALMON,SYNTHETIC 30 SPRAY BTL NS SCH (08:24)
--- NOTE | 2020-07-20 10:28 | PN ---
Subjective - Date and Time Seen Date: 07/20/20 Time: 10:23 Subjective Narrative: I still have right sided weakness Objective Objective Narrative: 89-year-old male admitted for CVA and right hemiparesis was evaluated at the bedside this morning and was found to be afebrile and in no acute distress. Patient is sitting comfortably in his chair watching TV and appears to be in his normal mood, however he continues to complain of weakness more than usual on the right side of his body. Patient is undergoing inpatient physical and occupational therapy which is tolerated without any issues. It was explained to him that he will need rehabilitation to address his new deficits but the hope is that he will be able to regain some of his previous abilities despite the stroke. Patient was started on Plavix in addition to full dose aspirin yesterday and has tolerated the medication without any issues. His blood pressure continue to be an issue but in a case of new onset or recurrent stroke permissive hypertension is allowed but will watch so that the blood pressure does not become too high. As a precaution one of his antihypertensive was increased. - Review of Systems Generalized/Overall Review: Reports: No Symptoms Reported EENTM: Reports: No Symptoms Reported Respiratory: Reports: No Symptoms Reported Cardiac: Reports: No Symptoms Reported Abdominal: Reports: No Symptoms Reported Genitourinary Symptoms: Reports: No Symptoms Reported Musculoskeletal Complaints: Reports: No Symptoms Reported Neurological: Reports: Weakness, Pre-existing Deficit Skin: Reports: No Symptoms Reported Endocrine: Reports: No Symptoms Reported - Vitals Vitals: Last Vital Signs Temp 36.1 C 07/20/20 07:21 Pulse 58 L 07/20/20 08:19 Resp 16 07/20/20 07:21 BP 181/83 H 07/20/20 08:19 Pulse Ox 95 07/20/20 07:21 - Exam Constitutional: Present: Alert, Oriented x3, Cooperative, Well developed, Well nourished, No distress, Elderly ENT Exam: Present: normal ENT inspection, hearing grossly normal Neck: Present: non-tender, full range of motion, supple, normal inspection, trachea midline Breasts: Present: Exam deferred, Nontender Respiratory: Present: chest non-tender, lungs clear, normal breath sounds, no respiratory distress, no accessory muscle use Cardiovascular/Chest: Present: normal peripheral pulses, regular rate, rhythm, no chest tenderness, no edema, no gallop, no JVD, no murmur, no rub, systolic murmur Abdomen: Present: Normal bowel sounds, soft, nontender, nondistended, no rebound tenderness, no hepatospenomegaly, no masses /Rectal: Present: Exam deferred Extremity: Present: normal range of motion, non-tender, normal inspection, no p edal edema, no calf tenderness, normal capillary refill, pelvis stable Skin Exam: Present: normal color, warm/dry, no cyanosis Lymphatic: Present: no adenopathy Neurologic: Present: alert, normal mood/affect, oriented x 3, abnormal gait, facial droop - Right-sided facial droop, motor weakness - Right hemiparesis Appearance: Present: appropriate appearance, appropriate insight, neat, no memory impairment Eye contact: Present: cooperative, good eye contact, normal speech Thoughts: Present: normal thought pattern, no apparent hallucination Assessment/Plan - Problems/Diagnosis (1) Suspected cerebrovascular accident (CVA) Problem: Acute (2) Weakness Problem: Acute (3) Gait instability Problem: Acute (4) Stroke-like symptoms Problem: Acute (5) Peripheral neuropathy Problem: Chronic (6) Hypertension Problem: Chronic Qualifiers: (7) Hyperlipidemia Problem: Chronic Qualifiers: (8) CHF (congestive heart failure) Problem: Chronic (9) Hemiparesis affecting right side as late effect of cerebrovascular accident Problem: Acute (10) CVA (cerebral vascular accident) Problem: Acute Qualifiers: Precerebral and cerebral artery: middle cerebral artery
[2020-07-20] MEDS: ENOXAPARIN SODIUM 40 MG/0.4 ML SYRG SC SCH (20:01)
[2020-07-20] MEDS: SENNOSIDES 8.6 MG TABLET PO SCH (20:02)
[2020-07-21] MEDS: ASPIRIN 325 MG TABLET.DR PO SCH (08:57)
[2020-07-21] MEDS: DULoxetine HCL 30 MG CAPSULE.SA PO SCH (08:57)
[2020-07-21] MEDS: TAMSULOSIN HCL 0.4 MG CAP.SR.24H PO SCH (08:58)
[2020-07-21] MEDS: DICLOFENAC SODIUM 100 APPL TUBE TP SCH (08:58)
[2020-07-21] MEDS: DOCUSATE SODIUM 100 MG CAPSULE PO SCH (08:58)
[2020-07-21] MEDS: CLOPIDOGREL BISULFATE 75 MG TABLET PO SCH (08:58)
[2020-07-21] MEDS: ROSUVASTATIN CALCIUM 20 MG TABLET PO SCH (08:58)
[2020-07-21] MEDS: CHOLECALCIFEROL 1,000 UNIT CAPSULE PO SCH (08:58)
[2020-07-21] MEDS: FAMOTIDINE 20 MG TABLET PO SCH (08:58)
[2020-07-21] MEDS: BETA-CAROTENE(A) W-C , E/MIN 1 TAB TABLET PO SCH (08:58)
[2020-07-21] MEDS: OMEGA-3 FATTY ACIDS 1 CAP CAPSULE PO SCH (08:58)
[2020-07-21] MEDS: ATENOLOL 25 MG TABLET PO SCH (08:58)
[2020-07-21] MEDS: FLUTICASONE PROPIONATE 120 SPRAY INHALER NS SCH (08:59)
[2020-07-21] MEDS ORDERED: LOSARTAN POTASSIUM 50 MG TABLET PO SCH (09:00)
[2020-07-21] MEDS ORDERED: amLODIPine BESYLATE 10 MG TABLET PO SCH (09:00)
[2020-07-21] MEDS: CALCITONIN,SALMON,SYNTHETIC 30 SPRAY BTL NS SCH (09:08)
--- NOTE | 2020-07-21 09:09 | PN ---
Subjective - Date and Time Seen Date: 07/21/20 Time: 08:25 Subjective Narrative: Any states he feels well today. Denies chest pain, shortness of breath or abdominal pain. He is okay with being discharged to [facility]. Objective - Review of Systems Generalized/Overall Review: Denies: Fever Respiratory: Denies: Shortness of Breath Cardiac: Denies: Chest Pain Abdominal: Denies: Abdominal Pain - And what is that you enjoyed about the Neurological: Reports: Weakness - Right sided weakness Misc: All systems neg except as marked - The case - Vitals Vitals: Last Vital Signs Temp 36.9 C 07/21/20 06:37 Pulse 54 L 07/21/20 08:58 Resp 18 07/21/20 06:37 BP 162/63 H 07/21/20 08:58 Pulse Ox 95 07/21/20 06:37 - Exam Constitutional: Present: Alert, Cooperative, Well developed, Well nourished, No distress, Elderly ENT Exam: Present: hearing grossly normal, moist mucous membranes Neck: Present: non-tender, supple. Absent: lymphadenopathy (R), lymphadenopathy (L) Respiratory: Present: lungs clear, no respiratory distress, no accessory muscle use, No wheezing. Absent: crackles, rhonchi Cardiovascular/Chest: Present: normal peripheral pulses, regular rate, rhythm, no edema, systolic murmur Abdomen: Present: Normal bowel sounds, soft, nontender Extremity: Present: no pedal edema Skin Exam: Present: normal color, warm/dry Neurologic: Present: alert, normal mood/affect, facial droop - Slight, right sided, motor weakness - 4 out of 5 strength in the right lower extremity, 5 out of 5 strength throughout the other extremities Appearance: Present: appropriate appearance, appropriate insight Eye contact: Present: cooperative, good eye contact Thoughts: Present: normal mood /affect Assessment/Plan Plan Narrative: 89-year-old male with a past medical history of congestive heart failure, CVA, depression, GERD, hypertension, hyperlipidemia, myocardial infarct, peripheral neuropathy, AAA, and macular degeneration presents with right-sided weakness. She was found to have MRI showing prior left MCA embolic infarcts with a few r ecurrent embolic infarcts in the same distribution. He is ambulating with a walker. His family would like him to be discharged to a snf. His blood pressure is elevated. He feels well, is tolerating a diet and ambulating with a walker. Plan #1 start losartan 25 mg daily #2 continue with PT #3 discharge planning to snf/rehab #4 continue with home medications for comorbidities - Problems/Diagnosis (1) Suspected cerebrovascular accident (CVA) Problem: Acute (2) Weakness Problem: Acute (3) Peripheral neuropathy Problem: Chronic (4) Hypertension Problem: Chronic Qualifiers: (5) Hyperlipidemia Problem: Chronic Qualifiers: (6) GERD (gastroesophageal reflux disease) Problem: Chronic (7) Depression Problem: Chronic (8) CHF (congestive heart failure) Problem: Chronic (9) AAA (abdominal aortic aneurysm) Problem: Chronic (10) Coronary artery disease Problem: Chronic Qualifiers: Coronary Disease-Associated Artery/Lesion type: bypass graft [place] vs. 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
--- NOTE | 2020-07-21 11:15 | DS ---
(1) CVA (cerebral vascular accident) Problem: Acute Qualifiers: CVA mechanism: embolism Precerebral and cerebral artery: middle cerebral artery Laterality of affected vessel: left Qualified Code(s): I63.412 - Cerebral infarction due to embolism of left middle cerebral artery (2) Weakness Problem: Acute (3) Peripheral neuropathy Problem: Chronic (4) Hypertension Problem: Chronic Qualifiers: Hypertension type: essential hypertension (5) Hyperlipidemia Problem: Chronic Qualifiers: (6) GERD (gastroesophageal reflux disease) Problem: Chronic Qualifiers: Esophagitis presence: without esophagitis Qualified Code(s): K21.9 - Gastro-esophageal reflux disease without esophagitis (7) Depression Problem: Chronic Qualifiers: Depression Type: other depression Qualified Code(s): F32.89 - Other specified depressive episodes (8) CHF (congestive heart failure) Problem: Chronic (9) AAA (abdominal aortic aneurysm) Problem: Chronic (10) Coronary artery disease Problem: Chronic Qualifiers: Coronary Disease-Associated Artery/Lesion type: bypass graft [place] vs. transplanted heart: [place] heart Associated angina: without angina Qualified Code(s): I25.810 - Atherosclerosis of coronary artery bypass graft(s) without angina pectoris Hospital Course: 89-year-old male with a past medical history of congestive heart failure, CVA, depression, GERD, hypertension, hyperlipidemia, myocardial infarct, peripheral neuropathy, AAA, and macular degeneration presents with right-sided weakness. She was found to have MRI showing prior left MCA embolic infarcts with a few recurrent embolic infarcts in the same distribution. He is ambulating with a walker. His family would like him to be discharged to a shelter/rehab. He had previously been on a baby aspirin. He was started on Plavix in the hospital. I will continue him on dual antiplatelet therapy with Plavix 75 mg daily and aspirin 81 mg daily for 21 days until August 07, 2020. That he will continue with Plavix only. His blood pressure is elevated. I have started him on losartan 25 mg daily. He feels well, is tolerating a diet and ambulating with a walker. He is stable to be discharged to the [facility] for rehab today. Procedures Performed: none Results and Findings: Lab Pending Results 07/18/20 14:28: SARS-CoV-2 (PCR) Not detected 07/18/20 14:45: WBC 5.9, RBC 3.85 L, Hgb 13.6, Hct 41.2 L, MCV 107.0 H, MCH 35.3 H, MCHC 33.0, RDW 12.9, Plt Count 192, MPV 9.2, Immature Gran % (Auto) 0.30, Immature Gran # (Auto) 0.02, Neutrophils % 80.4 H, Lymphocytes % 11.1 L, Monocytes % 6.3, Eosinophils % 1.2, Basophils % 0.7, Nucleated RBC % 0.0, Neutrophils # 4.7, Lymphocytes # 0.65 L, Monocytes # 0.4, Eosinophils # 0.1, Absolute Basophils 0.0 07/18/20 14:45: Sodium 141, Plasma Sodium 141, Potassium 4.4, Chloride 105, Carbon Dioxide 27.4, Anion Gap 13.0, BUN 22, Creatinine 0.88, Est GFR (Non-Af Amer) 87, BUN/Creatinine Ratio 25.0 H, Random Glucose 103, Calcium 8.7, Calcium Adj for Albumin 8.9, Total Bilirubin 0.3, AST 17, ALT 13 L, Alkaline Phosphatase 81, Troponin I Less than 0.017, Total Protein 6.8, Albumin 3.4 07/18/20 14:45: Lactic Acid, Venous 1.2 07/18/20 16:15: Urine Color Yellow, Urine Appearance Clear, Urine pH 6.0, Ur Specific [place] 1.025, Urine Protein Negative, Urine Glucose (UA) Negative, Urine Ketones Negative, Urine Blood Negative, Urine Nitrate Negative, Urine Bilirubin Negative, Urine Urobilinogen Normal, Ur Leukocyte Esterase Negative, Urine RBC Trace, Urine WBC Trace, Ur Epithelial Cells 0-5, Urine Bacteria Trace, Urine Culture Comments No culture indicated Discharge Location: [facility] Disposition: SNF Condition: Stable Level of Care: SNF Discharge Activity: Activity as tolerated Discharge Diet: General/regular food Residential Therapy: Physical Therapy, Occupation Therapy, Speech Therapy Referrals: Yana De Guzman MD [Primary Care Provider] - Additional Patient Instructions (free text): To [facility], for PT, OT and Speech therapy. Prescriptions (Any new or edited meds): Nitroglycerin [Nitrostat] 0.4 mg SL Q5MIN PRN #20 tab PRN Reason: Chest Pain Transmission Status: Pending to [facility] Aspirin [Aspirin EC] 81 mg PO DAILY #17 tab Transmission Status: Pending to [facility] Atorvastatin Calcium 40 mg PO DAILY #30 tab Transmission Status: Pending to [facility] Menthol [Biofreeze] 1 appl TP BID PRN #1 tube PRN Reason: Pain Transmission Status: Pending to [facility] Losartan Potassium [Cozaar] 25 mg PO DAILY #30 tab Transmission Status: Pending to [facility] DULoxetine HCL [Cymbalta] 90 mg PO DAILY #90 cap Transmission Status: Pending to [facility] Docusate Sodium 100 mg PO TID #90 cap Transmission Status: Pending to [facility] Carbamide Peroxide [Ear Drops] 2 drp OT PRN #1 bottle Transmission Status: Pending to [facility] [place] Oil/[place]-3 Fatty Acids [Fish Oil] 1,200 mg PO DAILY #30 cap Transmission Status: Pending to [facility] Tamsulosin HCl [Flomax] 0.4 mg PO DAILY #30 cap.sr.24h Transmission Status: Pending to [facility] Fluticasone Propionate [Flonase] 2 spray NS DAILY PRN #1 inhaler PRN Reason: Nasal Congestion Transmission Status: Pending to [facility] B2/Vits A,C,E/Lut/Zeaxanth/Min [Icaps Tablet] 1 tab PO BID #30 tab Transmission Status: Pending to [facility] Calcitonin,[place],Synthetic [Miacalcin Nasal [place]] 1 spray INTRANASAL (ALT) DAILY #1 bottle Transmission Status: Pending to [facility] amLODIPine BESYLATE [Norvasc] 10 mg PO DAILY #30 tab Transmission Status: Pending to [facility] Beta-Carotene(A) W-C , E/Min [Ocuvite] 1 tab PO BID #60 tab Transmission Status: Pending to [facility] [place] Clopidogrel Bisulfate [Plavix] 75 mg PO DAILY #30 tab Transmission Status: Pending to [facility] Carboxymethylcellulose Sodium [Refresh Tears] 1 drp OP BID PRN #1 bottle PRN Reason: dry eye(s) Transmission Status: Pending to [facility] Sennosides [Senokot] 17.2 mg PO HS #30 tab Transmission Status: Pending to [facility] Atenolol [Tenormin] 25 mg PO DAILY #30 tab Transmission Status: Pending to [facility] Acetaminophen [Tylenol] 3 tab PO TID #90 tab Transmission Status: Pending to [facility] [place] [facility] Cholecalciferol (Vitamin D3) [Vitamin D3] 1,000 unit PO DAILY #30 cap Transmission Status: Pending to [facility] Diclofenac Sodium [Voltaren] 2 g TP QID #1 tube Transmission Status: Pending to [facility] Complete Home Medications List: Complete Home Medication List: Tamsulosin HCl [Flomax] 2 tab PO DAILY 10/05/15 Acetaminophen [Tylenol] 3 tab PO TID #90 tab 07/21/20 Aspirin [Aspirin EC] 81 mg PO DAILY #17 tab 07/21/20 Atenolol [Tenormin] 25 mg PO DAILY #30 tab 07/21/20 Atorvastatin Calcium 40 mg PO DAILY #30 tab 07/21/20 B2/Vits A,C,E/Lut/Zeaxanth/Min [Icaps Tablet] 1 tab PO BID #30 tab 07/21/20 Beta-Carotene(A) W-C , E/Min [Ocuvite] 1 tab PO BID #60 tab 07/21/20 Calcitonin,[place],Synthetic [Miacalcin Nasal [place]] 1 spray INTRANASAL (ALT) DAILY #1 bottle 07/21/20 Carbamide Peroxide [Ear Drops] 2 drp OT PRN #1 bottle 07/21/20 Carboxymethylcellulose Sodium [Refresh Tears] 1 drp OP BID PRN #1 bottle 07/21/20 Cholecalciferol (Vitamin D3) [Vitamin D3] 1,000 unit PO DAILY #30 cap 07/21/20 Clopidogrel Bisulfate [Plavix] 75 mg PO DAILY #30 tab 07/21/20 DULoxetine HCL [Cymbalta] 90 mg PO DAILY #90 cap 07/21/20 Diclofenac Sodium [Voltaren] 2 g TP QID #1 tube 07/21/20 Docusate Sodium 100 mg PO TID #90 cap 07/21/20 Fluticasone Propionate [Flonase] 2 spray NS DAILY PRN #1 inhaler 07/21/20 Losartan Potassium [Cozaar] 25 mg PO DAILY #30 tab 07/21/20 Menthol [Biofreeze] 1 appl TP BID PRN #1 tube 07/21/20 Nitroglycerin [Nitrostat] 0.4 mg SL Q5MIN PRN #20 tab 07/21/20 [place] Oil/[place]-3 Fatty Acids [Fish Oil] 1,200 mg PO DAILY #30 cap 07/21/20 Sennosides [Senokot] 17.2 mg PO HS #30 tab 07/21/20 Tamsulosin HCl [Flomax] 0.4 mg PO DAILY #30 cap.sr.24h 07/21/20 amLODIPine BESYLATE [Norvasc] 10 mg PO DAILY #30 tab 07/21/20 Forms: Patient Portal Registration
[2020-07-21 13:14] VITALS: BP 131/65
== END 2020-07-21 13:05 | DRG 65 ==
LOC: ER 13:50 → MS 13:50
PROVIDERS: ADMIT Family Medicine; ATTEND Family Medicine
DX: R26.89 Other abnormalities of gait and mobility; I63.412 Cerebral infarction due to embolism of left middle cerebral artery; K21.9 Gastro-esophageal reflux disease without esophagitis; I50.9 Heart failure, unspecified; F32.89 Other specified depressive episodes; E78.5 Hyperlipidemia, unspecified; I71.4 Abdominal aortic aneurysm, without rupture; G62.9 Polyneuropathy, unspecified; I25.2 Old myocardial infarction; I69.351 Hemiplegia and hemiparesis following cerebral infarction affecting right dominant side; I25.810 Atherosclerosis of coronary artery bypass graft(s) without angina pectoris; I10 Essential (primary) hypertension